=== PATIENT | female | born 1950 | race Caucasian/White ===

== ENCOUNTER 2021-04-15 06:48 | Day surgery (SDC) | payer MEDICARE, OTHER ==
[~2021-04-15 06:48] MED LIST: Lactated Ringers 1,000 ML IV SCH; Sodium Chloride 0.9% 10 ML Syringe FLUSH PRN
[2021-04-15] MEDS ORDERED: fentaNYL 100 MCG/2 ML SDV ONE (08:23)
[2021-04-15] MEDS ORDERED: Propofol 200 MG/20 ML SDV ONE ×2 (08:24→08:54)
[2021-04-15 09:38] VITALS: BP 148/70; PULSE 46
--- NOTE | 2021-04-15 10:50 | OR ---
PREOPERATIVE DIAGNOSES: 1. History of hyperplastic colon polyps. Last colonoscopy was 03/2016. 2. Positive family history of colon polyps in sister. There is also an uncle with history of colon cancer. POSTOPERATIVE DIAGNOSES: 1. 2 mm polyp at 60 cm, removed using cold forceps. 2. Moderate diverticulosis, left greater than right. PROCEDURE: Colonoscopy with polypectomy x1 using cold forceps. SURGEON: Franklin García M.D. ANESTHESIA: Monitored anesthesia care. BOWEL PREP: Fair to good. DESCRIPTION OF PROCEDURE: Lauren is a 71-year-old female who was brought to the endoscopy suite after discussing risks and benefits of the procedure. Informed consent was obtained for conscious sedation and colonoscopy with or without biopsy and/or polypectomy. We also discussed possibility of missed lesions. Pre-procedure exam was unremarkable. IV, oxygen, and monitors were placed. The patient was placed in the left lateral decubitus position. Sedation was administered and a digital rectal exam was performed and unremarkable. Colonoscope was passed into the rectum and slowly advanced all the way to the cecum. Cecum was viewed and photographed. The colonoscope was slowly withdrawn and the mucosa was closed observed in a direct circumferential manner. The ascending colon was unremarkable. The transverse colon revealed 2 mm polyp at 60 cm, removed using cold forceps. Descending colon unremarkable. Sigmoid colon unremarkable. Retroflexion was performed. Rectal mucosa unremarkable. The patient did have moderate diffuse diverticulosis but left greater than right. Scope was removed. The patient tolerated the procedure well. The patient was monitored until that baseline status. Discharge instructions were reviewed and the patient was discharged in good condition. COMPLICATIONS: None. The patient did experience some bradycardia down into the upper 30s during the procedure, was feeling great afterwards. TOTAL TIME: Total scope time 28 minutes. ESTIMATED BLOOD LOSS: Less than 1 mL. RECOMMENDATIONS/FOLLOWUP: We will await results of path report to determine ideal followup interval. I would like to kindly thank Dr. Vernon for this referral. DMB: 04/15/2021 09:25:18 MODL: 04/15/2021 10:37:20 /[id number]
[2021-04-16] MEDS ORDERED: Lactated Ringers 1,000 ML IV SCH (07:00)
== END 2021-04-15 10:15 | disposition home or self-care (01) ==
LOC: VM.SDS 06:48
PROVIDERS: ATTEND Family Medicine
DX: Z12.11 Encounter for screening for malignant neoplasm of colon (principal); K57.30 Diverticulosis of large intestine without perforation or abscess without bleeding; R00.1 Bradycardia, unspecified; E11.9 Type 2 diabetes mellitus without complications; I10 Essential (primary) hypertension; K21.9 Gastro-esophageal reflux disease without esophagitis; E53.8 Deficiency of other specified B group vitamins; E78.00 Pure hypercholesterolemia, unspecified; E66.9 Obesity, unspecified; Z79.899 Other long term (current) drug therapy; Z79.82 Long term (current) use of aspirin; Z88.5 Allergy status to narcotic agent; Z80.0 Family history of malignant neoplasm of digestive organs; Z98.890 Other specified postprocedural states; Z79.84 Long term (current) use of oral hypoglycemic drugs; Z68.31 Body mass index [BMI] 31.0-31.9, adult
CPT/HCPCS: 00811; 82947; 88305; J2704; J3010; J7120

== ENCOUNTER 2022-01-23 16:28 | Emergency (ER) | payer MEDICARE, OTHER ==
[2022-01-23 16:44] VITALS: PULSE 55
[2022-01-23] MEDS ORDERED: Take Home: Sulfamethoxazole/Trimethoprim 800-160 MG Tab, 2 Tab Pack PO ONE (17:24)
[2022-01-23 17:49] VITALS: BP 169/69
== END 2022-01-23 17:45 | disposition home or self-care (01) ==
LOC: VM.ED 16:28
DX: R31.1 Benign essential microscopic hematuria (principal); E78.00 Pure hypercholesterolemia, unspecified; I10 Essential (primary) hypertension; K21.9 Gastro-esophageal reflux disease without esophagitis; E11.9 Type 2 diabetes mellitus without complications; E66.9 Obesity, unspecified; M19.90 Unspecified osteoarthritis, unspecified site; Z68.30 Body mass index [BMI] 30.0-30.9, adult; Z88.5 Allergy status to narcotic agent; Z79.82 Long term (current) use of aspirin; Z79.899 Other long term (current) drug therapy
CPT/HCPCS: 81001; 99283; 99284; A9270-GY